=== PATIENT | female | born 1945 | race Asian ===

== ENCOUNTER 2018-12-23 23:11 | Emergency (ER) | payer SELFPAY ==
[~2018-12-23] VITALS: Ht 154.9 cm; Wt 56.7 kg
[2018-12-23 23:30] VITALS: BP_SYST 147
[2018-12-23 23:44] VITALS: BP_SYST 147
== END 2018-12-23 23:44 | disposition home or self-care (01) ==
LOC: SED 23:11
DX: I10 Essential (primary) hypertension (principal); E11.9 Type 2 diabetes mellitus without complications; Z76.0 Encounter for issue of repeat prescription
CPT/HCPCS: 99283